=== PATIENT | female | born 1990 | race Caucasian/White ===

== ENCOUNTER 2018-05-27 19:55 | Emergency (ER) | payer MEDICAID ==
[~2018-05-27] VITALS: Ht 160 cm; Wt 61.0 kg
[2018-05-27 20:03] VITALS: BP 129/79
== END 2018-05-28 02:15 | disposition left against medical advice (07) ==
LOC: ER 19:55
DX: Z53.21 Procedure and treatment not carried out due to patient leaving prior to being seen by health care provider (principal)